=== PATIENT | female | born 1990 | race Caucasian/White ===

== ENCOUNTER 2022-05-14 08:13 | Outpatient (CLI) | payer BC, SELFPAY ==
[2022-05-14 09:04] LABS: Anion Gap 5 mmol/L (8-16); Blood Urea Nitrogen 9 mg/dL (7-17); Calcium 9.2 mg/dL (8.4-10.2); Carbon Dioxide 29 mmol/L (22-30); Chloride 102 mmol/L (98-107); Estimated Glomerular Filt Rate > 60; Glucose 87 mg/dL (65-110); Potassium 3.8 mmol/L (3.4-5.0); Sodium 136 mmol/L (137-145)
== END 2022-05-14 08:14 | disposition home or self-care (01) ==
PROVIDERS: Anesthesiology; PCP Emergency Medicine; Visit Provider Surgery Plastic and Reconstructive Surgery
DX: Z51.81 Encounter for therapeutic drug level monitoring (principal); Z01.818 Encounter for other preprocedural examination
CPT/HCPCS: 36415; 80048

== ENCOUNTER 2022-05-19 00:39 | Day surgery (SDC) | payer BC, SELFPAY ==
[2022-05-08 14:28] VITALS: BMI 19.6
--- NOTE | 2022-05-08 14:32 | SUR.PREOP ---
Report to the Outpatient Waiting Room, entrance under the green pavilion located off [facility], at time 1030_ on date _05/18/22 . Planned Procedure Time: _1230 Time changes happen often and if your time is changed the preop area will call you the afternoon before. - You and your visitor will be asked to self-screen and do not enter if you have any COVID symptoms. - Only one visitor is requested with a max of two and NO children visitors are allowed at this time. - The patient visitor may be requested to leave or wait in car when not with patient due to distancing restrictions. - A mask is optional within the hospital. Patients may have clear liquids (water, carbonated beverages, clear teas, apple juice) until 3 hours prior to surgery with a maximum of 20 ounces. - No food from midnight until time of surgery - Infants may have breast milk until 4 hours before surgery, formula 6 hours prior to surgery. - Children will be allowed to drink immediately following surgery. If applicable, please bring a bottle or sippy cup to assist with drinking. Juice, water, soda, and popsicles are readily available. For infants on formula, please bring formula the day of surgery. Pacifiers are allowed. Take the following medications with a SIP of water the morning of surgery: __n/a Medications to discontinue per physician n/a Date to take last dose_n/a Please no make-up, nail nepali, hairspray, perfume, deodorant, or body powder the day of surgery. No jewelry (including any body piercings) or valuables the day of surgery, leave them at home. Please take a shower or bath the night before, or the morning of, surgery with an antibacterial soap. Wear comfortable, loose fitting clothing. Children are encouraged to wear pajamas. - Jewelry must be removed prior to entering the operating room. Rings and piercings that are not removed may be cut off. - The hospital will not accept responsibility for valuables. - Please leave all valuables, including medications, at home the day of surgery. If you are going home after surgery, a licensed pick up driver must drive you home. - NO public transportation without another adult if you receive anesthesia. - We recommend that an adult stay with you for 24 hours following discharge. - We also recommend that you do not drive, make important decision, drink alcoholic beverages, or take any drugs that were not prescribed by your health care provider for at least 24 hours after your discharge time. For Pediatric surgeries, we recommend two adults accompany the child home. Follow any additional instructions given to you from your surgeon. If you or anyone in your household have experienced Covid symptoms in the past week, please notify your surgeon or the nurse liaison at the phone number below for possible testing. Telephone instructions given to kelli ray and asked if any additional questions and then verbalized understanding. Patient advised to call surgeon office or pre surgery nurse liaison [phone] if any additional questions.
[2022-05-19] VITALS (7 sets, daily range): BP systolic 115–129; BP diastolic 59–94; PULSE 72–97; RESP 13–20; TEMP 36.2–36.6; O2SAT 100
--- NOTE | 2022-05-19 10:33 | WPDHPUPDATE1 ---
History and Physical Update Update Date/Time: 05/19/22 10:33 History and Physical has been reviewed, including an updated exam of the patient. There are NO changes in the patient's condition. Risks, benefits, and alternatives have been discussed and questions answered. Patient agrees to proceed with procedure.
[2022-05-19] MEDS: LACTATED RINGERS 1,000 ML 30 ML IV CONT ×2 (10:45→12:06)
--- NOTE | 2022-05-19 10:49 | P.OP_ITS ---
Procedure Note - Detailed Date of Procedure 05/19/22 Pre-op Diagnosis mass posterior scalp Post-op Diagnosis Same Procedure Performed Excision posterior scalp subcutaneous mass 4.5 cm Surgeon Hermes Sutton MD Anesthesia General Description of Procedure Preoperatively the risks, benefits, alternatives were discussed in extensive detail. I want them to be very realistic about the risks involved as well as expectations. Made sure answered all of their questions are satisfaction. They voiced a clear understanding. Consent obtained. Patient was taken to the operating room. Anesthesia provided by anesthesiology. She was placed in the lateral decubitus position. Prepped and draped in a standard sterile fashion. Surgical time-out was taken. 1% lidocaine and 0.25% Marcaine with epinephrine was used anesthetize locally. Fifteen blade used to make an incision over the mass. Dissection was continued until the mass was identified. This was deep to the galea / muscle. Appears consistent with osteophyte bone overgrowth. Using a combination of chisel, rasp, and rongeur this was debrided back to improved contour. The outer table was not violated. No evidence of neurovascular or other structure injury. I closed in layers with 3-0 Monocryl followed by skin lorena. Dressings were morris isa. She was woken taken to the PACU without difficulty. All instrument sponge counts were correct at the end of the case. Estimated Blood Loss 10 Drains No Packing No Pathology Yes (Posterior scalp mass) Complications No immediate complications Condition Stable Disposition PACU
[2022-05-19] MEDS: ceFAZolin 2 GM/D5W 50 ML 2 GM/50 ML BAG IVPB (11:10)
--- NOTE | 2022-05-19 11:41 | P.PNAN_ITS ---
Anes - Eval Pre Procedure Procedure: Operation Date: 05/19/22 12:30 Proposed Procedures p Excision of Mass Posterior Scalp - Hermes Sutton MD Date/Time: 05/19/22 11:41 Pre Op Diagnosis: mass posterior scalp Patient Data Age: 32 Gender: F Height: 1.7 m Weight: 58.45 kg Last Vital Signs Temp 36.6 C 05/19/22 10:45 Pulse 74 05/19/22 10:45 Resp 18 05/19/22 10:45 BP 116/59 L 05/19/22 10:45 Pulse Ox 100 05/19/22 10:45 O2 Del Method Room Air 05/19/22 10:45 Allergies Allergy/AdvReac Type Severity Reaction Status Date / Time Penicillins Allergy Intermediate Hives Verified 05/19/22 10:52 Home Medications Medication Instructions Recorded Confirmed Type spironolactone 100 mg tablet 50 mg PO DAILY 08/05/21 05/19/22 History cetirizine 10 mg capsule (Zyrtec) 10 mg PO DAILY 05/08/22 05/19/22 History Patient hx anesthesia problems: none Family hx anesthesia problems: none Results Review: All pre-operative results and documents have been reviewed as part of the pre- operative evaluation. [facility] Social History Social History Smoking status: Former smoker Tobacco type: cigarettes Additional smoking assessment comments: smoked 4 years Alcohol intake: current Drinks per week: 3 Substance use: current Substance use type: marijuana Other substance usage details: smoking and eatables daily Living arrangements: alone Spiritual care concerns: No Exam Day of Procedure 05/19/22 11:41
[2022-05-19] MEDS: LIDOCAINE HCL 1% PF 30 ML VIAL INFILTRATE (11:58)
[2022-05-19] MEDS: BUPIVACAINE/EPINEPHRINE 0.5% 10 ML VIAL 30 ML INFILTRATE (11:58)
== END 2022-05-19 13:41 | disposition home or self-care (01) ==
PROVIDERS: PCP Emergency Medicine; Visit Provider Surgery Plastic and Reconstructive Surgery
PROC: (CPT 21181; principal; 2022-05-19 12:30)
DX: M89.8X8 Other specified disorders of bone, other site (principal); Z87.891 Personal history of nicotine dependence; F12.90 Cannabis use, unspecified, uncomplicated
CPT/HCPCS: 21181; 88304; A9270; J0690; J1100; J2250; J2370; J2405; J2704; J3010; J7120

== ENCOUNTER 2024-09-19 07:46 | Outpatient (CLI) | payer BC, SELFPAY ==
--- NOTE | ~2024-09-19 | MMUS_ITS ---
EXAMINATION: MM diag loy implant BI w mel, US breast BI complete HISTORY: Palpable left breast lump. TECHNIQUE: Additional 3-D tomosynthesis images of the breasts were performed and synthetic 2-D images were generated. CAD analysis was submitted and interpreted. High resolution complete bilateral breas t ultrasound was performed. COMPARISON: None BREAST PARENCHYMAL COMPOSITION: Dense: The breasts are extremely dense, which lowers the sensitivity of mammography. FINDINGS: MAMMOGRAPHIC FINDINGS: There are bilateral subpectoral breast implants. There are no suspicious masses, calcifications or ar chitectural distortion in either breast to suggest malignancy. ULTRASOUND: Complete US of all 4 quadrants of the breast/s and retroareolar region was reviewed. Normal heterogen eous echotexture without focal solid or cystic mass. IMPRESSION: 1. No evidence for malignancy in either breast. 2. Routine yearly screening mammogram and regular clinical breast examination are recommended. BI-RADS Category 1: Negative Reviewed, dictated and finalized at location [] IMPRESSION: 1. No evidence for malignancy in either breast. 2. Routine yearly screening mammogram and regular clinical breast examination a re recommended. BI-RADS Category 1: Negative
== END 2024-09-19 07:47 | disposition home or self-care (01) ==
PROVIDERS: PCP Emergency Medicine; Visit Provider Obstetrics & Gynecology Gynecology
DX: N63.20 Unspecified lump in the left breast, unspecified quadrant (principal); R92.8 Other abnormal and inconclusive findings on diagnostic imaging of breast
CPT/HCPCS: 76641; 77062; 77066; G0279